=== PATIENT | female | born 1955 | race Caucasian/White ===

== ENCOUNTER 2018-04-11 19:50 | Emergency (ER) | payer OTHER ==
[~2018-04-11] VITALS: Ht 154.9 cm; Wt 81.7 kg
[2018-04-11] MEDS ORDERED: MAGIC MOUTHWASH SWISH&SPIT (20:41)
[2018-04-11] MEDS ORDERED: AMOXICILLIN 50500 MG PO (20:46)
[2018-04-11] MEDS ORDERED: MOBIC7.5 MG PO (20:46)
[2018-04-11 21:00] VITALS: BP 210/107
== END 2018-04-11 21:07 | disposition home or self-care (01) ==
LOC: ER 19:50
DX: K05.10 Chronic gingivitis, plaque induced (principal)